=== PATIENT | male | born 1975 | race Caucasian/White ===

== ENCOUNTER 2022-11-20 14:44 | Outpatient (CLI) | payer BC ==
[~2022-11-20 14:44] MED LIST: Magnevist 469MG/ML 20 ML VIAL ONE
== END 2022-11-20 14:45 | disposition home or self-care (01) ==
LOC: CSHMRI 14:44
PROVIDERS: ATTEND Specialist
DX: M51.16 Intervertebral disc disorders with radiculopathy, lumbar region (principal); M51.36 Other intervertebral disc degeneration, lumbar region
CPT/HCPCS: 72158